=== PATIENT | female | born 1975 | race Caucasian/White ===

== ENCOUNTER 2016-09-23 14:57 | Emergency (ER) | payer OTHER ==
--- NOTE | 2016-09-23 15:23 | PROVIDER DOCUMENTATION ---
HPI-Rash/Wound/ReCheck - General Chief Complaint: Work Related Injury Stated Complaint: SUTURE REMOVAL Time Seen by Provider: 09/23/16 15:08 Source: patient Allergies/Adverse Reactions: Allergies Allergy/AdvReac Type Severity Reaction Status Date / Time codeine [Codeine] Allergy Intermediate SWELLING Verified 09/09/16 12:24 Home Medications: Home Medication List Medication Instructions Recorded Confirmed Last Taken Type Lisinopril 20 mg PO DAILY #30 tablet 08/12/14 09/09/16 09/09/16 05:30 Rx Albuterol Sulfate [Albuterol 8.5 gm IH DIRECTED PRN PRN 09/09/16 09/09/16 05:30 History Sulfate Hfa] Fluticasone/Salmet 250/50 INH 1 puff INH RTBID 09/09/16 09/09/16 09/09/16 05:30 History [Advair 250/50 Diskus] Sulfamethoxazole/Trimethoprim 1 each PO BID #10 tablet 09/09/16 Unknown Rx [Bactrim Ds Tablet] Mupirocin Ointment [Bactroban 1 applicatn TOP TID #1 tube 09/23/16 Unknown Rx Ointment] - History of Present Illness-Dermatology Nature of Presenting Problem: 41 y/o WF presents to the ED for suture removal 14 days after emplacement. States that she cut her finger at work and had to have sutures. States that the wound has been healing well. Denies any redness/drainage/swelling from the area. Review of Systems - Adult - REVIEW OF SYSTEMS - ADULT Constitutional: reports: no symptoms reported. denies: chills, fever Eyes: reports: no symptoms reported. denies: blurred vision, double vision Ears, Nose, Mouth & Throat: reports: no symptoms reported. denies: ear pain, nose pain Cardiovascular: reports: no symptoms reported. denies: chest pain, palpitations Respiratory: reports: no symptoms reported. denies: dyspnea on exertion, shortness of breath Gastrointestinal: reports: no symptoms reported. denies: nausea, vomiting Genitourinary: reports: no symptoms reported. denies: dysuria, frequency Musculoskeletal: reports: no symptoms reported. denies: joint pain, joint swelling Integumentary: reports: see HPI, other. denies: nail changes, rash Neurological: reports: no symptoms reported. denies: numbness, paresthesia Psychiatric: reports: no symptoms reported Endocrine: reports: no symptoms reported. denies: cold intolerance, heat intolerance Hematologic/Lymphatic: reports: no symptoms reported. denies: easy bruising, prolonged bleeding Allergic/Immunologic: reports: no symptoms reported All Other Systems: Reviewed and Negative Past History - Adult - PAST MEDICAL HISTORY-ADULT Review of Records: reports: Nursing Assessment Review, Medications Reviewed Major Childhood Illnesses: reports: denies history Cardiovascular: reports: HTN Respiratory: reports: COPD Gastrointestinal: reports: denies history Obstetrical/Gynecological: reports: denies history Genitourinary: reports: denies history Musculoskeletal: reports: denies history Neurological: reports: denies history Psychiatric: reports: denies history Endocrine/Immune: reports: denies history Other Conditions: reports: denies history - PRIOR SURGERIES/PROCEDURES Surgical/Procedure History: reports: reviewed, not pertinent - PRIOR HOSPITALIZATIONS Prior Hospitalizations: reports: for other non-related - IMMUNIZATION STATUS Childhood Immunizations: See Nurse Assessment Flu Vaccine: See Nurse Assessment - FAMILY HISTORY Family History: reviewed, not pertinent - SOCIAL HISTORY Smoking: cigarettes, less than 1 pack/day Provider spent 3-5 mins advising pt. on dangers of tobacco.: Discussed manners to quit use, and f/u contacts for add'l counseling. Physical Exam-General - PHYSICAL EXAM-ADULT Initial Vital Signs Reviewed: Yes - CONSTITUTIONAL General Appearance: appears well, alert, no apparent distress - EYES Eyes: pink conjunctivae - HEAD, EARS, NOSE, MOUTH & THROAT HENMT: normocephalic/atraumatic - NECK Neck: normal inspection - RESPIRATORY Respiratory: no respiratory distress - CARDIOVASCULAR Cardiovascular: normal peripheral pulses, regular rate, rhythm - MUSCULOSKELETAL Extremity: normal range of motion, normal gait, normal capillary refill. negative: abnormal NV exam, deformity, pulse deficit Peripheral Pulses: radial (R): 2+, radial (L): 2+ - SKIN Integumentary: normal color, normal turgor, warm/dry, laceration(s) (healing lac to proximal thumb, [address] epithelialization evident.) - NEUROLOGIC Neurologic: negative: aphasia, motor weakness, sensory deficit - PSYCHIATRIC Psych/Mental Status: normal mood/affect, normal thought content, normal thought process, oriented x 3 Progress - PLAN OF CARE/RESULTS Progress/Plan/Lab Results: Orders Category Date Time Status Remove Sutures DIRECTED Care 09/23/16 15:17 Active Vital Signs Temp Pulse Resp BP Pulse Ox 09/23/16 15:00 97.9 F 72 16 124/73 99 codeine [Codeine] Allergy (Intermediate, Verified 09/09/16 12:24) SWELLING Lisinopril 20 mg PO DAILY #30 tablet 08/12/14 Albuterol Sulfate [Albuterol Sulfate Hfa] 8.5 gm IH DIRECTED PRN PRN Fluticasone/Salmet 250/50 INH [Advair 250/50 Diskus] 1 puff INH RTBID 09/09/16 Sulfamethoxazole/Trimethoprim [Bactrim Ds Tablet] 1 each PO BID #10 tablet 09/09 Mupirocin Ointment [Bactroban Ointment] 1 applicatn TOP TID #1 tube 09/23/16 Discussed continued wound care and limitations with pt, including return precautions. Departure - Departure Time of Disposition Order: 15:19 DIAGNOSIS: Laceration, Encounter for removal of sutures Disposition: HOME 01 Certified Medical Emergency: Emergent Condition: Stable Additional Instructions: Keep wound clean and dry. Return if area becomes red/swollen or draining. ED Follow Up Instructions: You have been treated by a care provider in the Emergency Department. These instructions are being provided to you so you can have an understanding of how to care for yourself upon discharge. Upon discharge from the Emergency Department, you are responsible for making arrangements for follow-up care by a physician of your choice. Take all prescribed medications as directed. Return to the Emergency Department immediately for any new or worsening symptoms. You may call the Physician Referral phone number at [phone] to obtain a list of Physicians who are taking new patients. Prescriptions: Mupirocin Ointment [Bactroban Ointment] 1 applicatn TOP TID #1 tube Referrals: None,PCP [Primary Care Provider] - Forms: Work Excuse Attestation - Physician/ KAUSHIK Attestation Patient care was provided by Advanced Practice Provider:: Yes Advanced Practice Provider:: Farhana Campos Advanced Practice Provider documentation review:: The Mid-level provider documentation, treatment plan and medical decision making was reviewed by the physician who agrees with all treatment and medical decision making by the MLP.
[2016-09-23] MEDS ORDERED: STERILE WATER INJ. ONE (15:37)
[2016-09-23] MEDS ORDERED: GEODON ONE (15:37)
[2016-09-23] MEDS ORDERED: ATIVAN ONE (15:41)
[2016-09-23 15:48] VITALS: BP 124/73
[2016-09-23] MEDS ORDERED: BENADRYL ONE (15:53)
== END 2016-09-23 15:48 | disposition home or self-care (01) ==
LOC: ED 14:57
DX: Z48.02 Encounter for removal of sutures (principal); S61.011D Laceration without foreign body of right thumb without damage to nail, subsequent encounter; X58.XXXD Exposure to other specified factors, subsequent encounter; I10 Essential (primary) hypertension; J44.9 Chronic obstructive pulmonary disease, unspecified; F17.210 Nicotine dependence, cigarettes, uncomplicated; Z71.6 Tobacco abuse counseling; Z79.899 Other long term (current) drug therapy; Z79.51 Long term (current) use of inhaled steroids
CPT/HCPCS: J1200; J2060; J3486